=== PATIENT | male | born 1985 | race Caucasian/White ===

== ENCOUNTER 2020-11-09 10:54 | Emergency (ER) | payer BC, SELFPAY ==
[2020-11-09 11:28] VITALS: BP 135/87; PULSE 62; RESP 16; TEMP 36.8; O2SAT 99
--- NOTE | 2020-11-09 12:07 | ED.DENTAL ---
HPI - Dental/Oral General Chief complaint: Dental/Oral Stated complaint: WISDOM TOOTH PAIN Time Seen by Provider: 11/09/20 12:00 Source: patient and RN notes reviewed Mode of arrival: ambulatory Limitations: no limitations History of Present Illness HPI Narrative: Patient presents today complaining of left lower wisdom tooth pain states that when the wisdom tooth erupted, portion of it broke off, exposing the nerve and causing pain. He started having pain yesterday and currently rates pain 7/10. He has been using Tylenol and ibuprofen without relief. Patient does have a dentist and will have to call for an appointment. Denies shortness of breath or difficulty swallowing. No recent antibiotic use. MD Complaint: tooth pain Related Data Home Medications Medication Instructions Recorded Confirmed dextroamphetamine-amphetamine 11/09/20 11/09/20 Allergies Allergy/AdvReac Type Severity Reaction Status Date / Time No Known Allergies Allergy Verified 11/09/20 11:29 Review of Systems Review of Systems: CONSTITUTIONAL: Denies body aches, fever, chills, or sweats. EYES: Denies visual changes, redness, or discharge. ENT: Denies rhinorrhea, congestion, sore throat, or otalgia.+ Tooth pain CARDIOVASCULAR: Denies chest pain, palpitations, or edema. RESPIRATORY: Denies cough or dyspnea. GASTROINTESTINAL: Denies abdominal pain, nausea, vomiting, or diarrhea. GENITOURINARY: Denies dysuria or hematuria. SKIN: Denies rash, itching, or wounds. MUSCULOSKELETAL: Denies back pain, joint pain, or myalgia. NEUROLOGIC: Denies headache, numbness, tingling, or weakness. PSYCH: Denies depression or anxiety. [facility] Past Medical History Medical History Contact dermatitis Family History Family History Father Hypertension Social History Social History Smoking status: Never smoker Alcohol intake: never Substance use: never Substance use type: does not use Comments At time of signature, I have reviewed and agree with nursing past medical, surgical, social and family history unless otherwise noted. Please see nursing chart for further information. There is no relevant family history pertinent to the presenting complaint Exam Narrative: GENERAL: Well-appearing, well-nourished, and in no acute distress. HEAD: Normocephalic, atraumatic. EYES: EOMI. No redness or drainage. Conjunctivae normal. ENT: Mucous membranes pink and moist. Throat normal. Uvula midline. The lateral half of tooth #17 is missing. NECK: Normal AROM. Supple. No lymphadenopathy. CHEST: No respiratory distress. EXTREMITIES: Normal range of motion. No edema. SKIN: Warm, dry, no rash. Capillary refill normal. Normal skin turgor. NEURO: No focal deficits. Alert and oriented x3. Gait steady. PSYCH: Normal affect. No signs of depression or anxiety. Course Vital Signs Vital signs: Vital Signs Temperature 98.2 F 11/09/20 11:28 Pulse Rate 62 11/09/20 11:28 Respiratory Rate 16 11/09/20 11:28 Blood Pressure 135/87 11/09/20 11:28 Pulse Oximetry 99 11/09/20 11:28 Temperature 98.2 F 11/09/20 11:28 Pulse Rate 62 11/09/20 11:28 Respiratory Rate 16 11/09/20 11:28 Blood Pressure 135/87 11/09/20 11:28 Pulse Oximetry 99 11/09/20 11:28 Reviewed. Pt has been instructed to follow up with his PCP regarding his elevated blood pressure today. MDM - Dental/Oral Differential Diagnosis Differential diagnosis: Likely gingival abscess, dental caries, toothache, dental abscess and fracture of tooth Critical Care Time Critical Care Time Critical Care Time: No Discharge Plan Discharge Clinical Impression: Fracture of tooth Qualifiers: Encounter type: initial encounter Fracture type: open Qualified Code(s): S02.5XXB - Fracture of tooth (traumatic), init
== END 2020-11-09 12:18 | disposition home or self-care (01) ==
PROVIDERS: Emergency Provider Nurse Practitioner; PCP Internal Medicine
DX: S02.5XXA Fracture of tooth (traumatic), initial encounter for closed fracture (principal); X58.XXXA Exposure to other specified factors, initial encounter
CPT/HCPCS: 99213; G0463

== ENCOUNTER 2021-06-26 22:35 | Emergency (ER) | payer OTHER, BC, SELFPAY ==
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
[2021-06-26 22:37] VITALS: BP 148/92; PULSE 71; RESP 17; TEMP 36.7; O2SAT 100
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
[2021-06-26] MEDS: KETOROLAC (*BKC) 60 MG/2 ML VIAL IM (23:22)
[2021-06-27 00:20] VITALS: BP 115/87; PULSE 71; RESP 16; O2SAT 100
== END 2021-06-27 00:20 | disposition home or self-care (01) ==
PROVIDERS: Emergency Provider Nurse Practitioner Family; PCP Internal Medicine
DX: S39.92XA Unspecified injury of lower back, initial encounter (principal); S40.012A Contusion of left shoulder, initial encounter; V49.40XA Driver injured in collision with unspecified motor vehicles in traffic accident, initial encounter
CPT/HCPCS: 72100; 73030; 96372; 99284; J1885